=== PATIENT | female | born 1940 | race Caucasian/White ===

== ENCOUNTER → 2016-09-24 | Outpatient (CLI) | payer MEDICARE ==
[~2016-09-24] MED LIST: CULTURELLE10 Billion PO; LORTAB 5/500 501 TAB PO; NAPROSYN 500MG500 MG PO; PRILOSEC OTC20 MG PO
--- NOTE | 2016-09-25 06:22 | RADIOLOGY REPORT PS360 ---
PROCEDURE: 2-D M-mode and color Doppler study INDICATIONS FOR THE TEST: Chest pain COPD Heart Murmur Tobacco Smoking Palpitations Fatigue Syncope Edema Hypertension Diabetes Mellitus Rheumatic Fever SOBXDOEXObesity Hyperlipidemia Family History HD Additional History PATIENT INFORMATION HEIGHT: 66 WEIGHT:200 GENDER: Female B/P:140/92 2-D/M-MODE INTERPRETATION: 2-D MEASUREMENTS OBSERVED VALUES IN CMS Right Ventricular Dimension (RVDd) 1.6 Interventricular Septum (Thickness)(IVsd) 1.2 Left Ventricular Internal Dimensions(LVIDd) 5.6 Left Ventricular Posterior Wall (Thickness)(LVPWd) .8 Aortic Root 3.2 Aortic Cusp Separation 1.6 Left Atrial Dimensions (LAD) 2.8 2D 1. The left atrium is qualitatively mildly enlarged, left ventricle is normal size, there is mild concentric left ventricular hypertrophy present, visually estimated ejection fraction of 55% with no obvious regional wall motion abnormality. 2. The right atrium and right ventricle are relatively normal size and function. 3. The aortic valve is minimally thickened and fibrosed consistent with mild aortic sclerosis. 4. The mitral valve has mild mitral calcification there is no mitral stenosis. 5. The tricuspid valve is structurally normal. 6. The pulmonic valve is not well visualized. 7. There is no significant pericardial effusion noted. DOPPLER INTERROGATION: Doppler interrogation of the aortic mitral and tricuspid valve reveals presence of mild mitral and tricuspid regurgitation, tricuspid regurgitant jet velocity is insufficient for calculation of the right ventricular systolic pressure, grade 1 diastolic dysfunction seen without tissue Doppler evidence of raised left atrial pressure. CONCLUSION: 1. Mildly enlarged left atrium, normal left ventricular size, mild concentric left ventricular hypertrophy, visually estimated ejection fraction 55% with no obvious regional wall motion abnormality, grade 1 diastolic dysfunction seen without Doppler evidence of raised left atrial pressure. 2. Mild mitral and tricuspid regurgitation. 3. No significant pericardial effusion noted.
== END ==
LOC: RT 07:45
DX: R06.09 Other forms of dyspnea (principal); R74.8 Abnormal levels of other serum enzymes; R73.9 Hyperglycemia, unspecified

== ENCOUNTER → 2016-10-19 | Outpatient (CLI) | payer MEDICARE ==
[~2016-10-19] VITALS: Ht 165.1 cm; Wt 90.3 kg
== END ==
LOC: DIETICIAN 08:48
DX: E11.9 Type 2 diabetes mellitus without complications (principal); Z71.3 Dietary counseling and surveillance

== ENCOUNTER → 2016-11-24 | Outpatient (CLI) | payer MEDICARE ==
[2016-11-24 11:11] LABS: BUN 11 mg/dL (7-18); GFR (ESTIMATED) 70 ML/MIN (59-)
== END ==
LOC: LAB 09:34
PROVIDERS: Nurse Practitioner Family
DX: E78.5 Hyperlipidemia, unspecified (principal)

== ENCOUNTER → 2017-01-24 | Outpatient (CLI) | payer MEDICARE ==
[2017-01-24 09:41] LABS: BUN 9 mg/dL (7-18)
[2017-01-24 09:52] LABS: GFR (ESTIMATED) 97 ML/MIN (59-)
== END ==
LOC: LAB 08:01
PROVIDERS: Nurse Practitioner Family
DX: E11.9 Type 2 diabetes mellitus without complications (principal); E78.5 Hyperlipidemia, unspecified